=== PATIENT | male | born 1970 | race Caucasian/White ===

== ENCOUNTER 2016-06-08 07:37 | Emergency (ER) | payer BC, OTHER ==
[~2016-06-08] VITALS: Ht 165.1 cm; Wt 117.0 kg
[~2016-06-08 07:37] MED LIST: LEXA20TA PO; LISI-586 PO; LOVA20TA PO; METF500 PO
[2016-06-08 07:40] VITALS: BP 146/93; PULSE 83; RESP 18; TEMP 98.4; O2SAT 96
[2016-06-08] MEDS ORDERED: LOVA20TA PO (07:58)
[2016-06-08] MEDS ORDERED: LISI2.5T3 PO (07:58)
[2016-06-08] MEDS ORDERED: BUPR100CR PO (07:58)
[2016-06-08] MEDS ORDERED: METF500T PO (07:58)
[2016-06-08] MEDS ORDERED: LIDOCAINE HCL 1% 50 ML VIAL INFIL ONE (08:15)
[2016-06-08] MEDS ORDERED: TETANUS/DIPHTHERIA TOXOID ADULT 0.5 ML VIAL IM ONE (08:15)
--- NOTE | 2016-06-08 08:48 | PD ---
HPI Chief Complaint: Laceration/Skin Injury Time Seen by Provider: 08:05 Travel History International Travel<30 days: No Contact w/Intl Traveler<30days: No Traveled to known affect area: No History of Present Illness HPI This is a well 46-year-old man who presents to the emergency department complaining of a stab wound to his left hand. He was opening a box with a kitchen knife when he actually stuck in his webspace between his first and second finger on the left hand. This happened just prior to arrival. Bleeding is controlled. Doesn't know his last tetanus shot but states he gets his shots regularly. He otherwise has been feeling generally well and healthy. History Past Medical History Narrative Medical Diabetes Tetanus Vaccination: Unknown Influenza Vaccination: Yes Social History Alcohol Use: Yes (Rare) Tobacco Use: No Allergies-Medications (Allergen,Severity, Reaction): Coded Allergies: No Known Allergies (Unverified , 06/08/16) Reported Meds & Prescriptions Reported Meds & Active Scripts Active Reported Wellbutrin SR 12 HR (Bupropion HCl) 100 Mg Tab 100 Mg PO DAILY Lovastatin 20 Mg Tab 20 Mg PO DAILY Lisinopril 2.5 Mg Tab 2.5 Mg PO DAILY Metformin (Metformin HCl) 500 Mg Tab 500 Mg PO TID With meals Review of Systems Except as stated in HPI: all other systems reviewed are Neg Physical Exam Narrative GENERAL: Well-appearing 46-year-old man, no acute distress. SKIN: Warm and dry. CARDIOVASCULAR: Warm and well perfused. RESPIRATORY: Normal rate and effort. MUSCULOSKELETAL: Focus examination of the left hand reveals a small approximately 1 severe laceration webspace between the first and second finger on the left hand. He has full strength in the thumb abduction and adduction flexion and extension at the MCP and IP joints. Sensations will light touch throughout the thumb and first finger. Minimal bleeding. NEUROLOGICAL: Awake and alert. No gross deficits. Data Data Last Documented VS Vital Signs Date Time Temp Pulse Resp B/P Pulse Ox O2 Delivery O2 Flow Rate FiO2 06/08/16 07:40 98.4 83 18 146/93 96 Orders Lidocaine 1% Inj (50 Ml) (Xylocaine 1% I (06/08/16 08:15) Tetanus/Diphtheria Tox Adult (Tetanus/Di (06/08/16 08:15) MDM Medical Decision Making Medical Screen Exam Complete: Yes Emergency Medical Condition: Yes Differential Diagnosis Laceration, nervous or tendon injury Narrative Course 46-year-old male with a axonal stab wound to left hand. The fairly superficial laceration. Doesn't seem to go to deep. Doesn't appear to have any nerve or tendon injury. He was washout the bedside, repaired primarily by me. Procedures Procedure Narrative LACERATION LOCATION: Left hand LENGTH: 1 cm NUMBER OF STITCHES/SUN: 6 REPAIR: The area of the laceration was prepped with Betadine and sterilely draped. The laceration was infiltrated with 1% lidocaine plain. The wound was copiously irrigated and explored without evidence of foreign body, tendon injury or neurovascular injury. The wound was closed using 5-0 Prolene. This was a single layer repair. A sterile dressing was applied. The patient was advised to keep the dressing clean and dry. Patient tolerated the procedure well. Diagnosis Primary Impression: Laceration of left hand Qualified Code: S61.412A - Laceration of left hand without foreign body, initial encounter Additional Instructions: Keep wound clean and dry. Do not wet for 24 hours. After 24 hours and clean the wound gently with soap and water. Gently clean wound twice daily with soap and water. Do not soak wound. No swimming, hot tubs, or allowing wound to get too wet. Apply antibiotic ointment to wound twice daily. Return to the emergency department for any worsening pain, swelling, redness, significant bleeding, or any other new or worsening symptoms. Follow-up with her primary doctor or return to the emergency department in 7 days for suture removal. Disposition: 01 DISCHARGE HOME Condition: Stable Antony Gruber MD Jun 08, 2016 08:48
== END 2016-06-08 08:55 | disposition home or self-care (01) ==
LOC: PHED 07:37
DX: S61.412A Laceration without foreign body of left hand, initial encounter (principal); E11.9 Type 2 diabetes mellitus without complications; Z23 Encounter for immunization; W26.0XXA Contact with knife, initial encounter; Y93.89 Activity, other specified
CPT/HCPCS: 12001; 90471; 90714